=== PATIENT | male | born 1990 | race Caucasian/White ===

== ENCOUNTER 2018-05-21 10:25 | Emergency (ER) | payer MEDICAID, OTHER ==
[~2018-05-21] VITALS: Ht 180.3 cm; Wt 78.0 kg
[~2018-05-21 10:25] MED LIST: IBUP-1984 PO
[2018-05-21 10:26] VITALS: BP 118/79
[2018-05-21] MEDS ORDERED: DOXYCYCLINE 100MG CAPSULE PO STA (10:51)
[2018-05-21] MEDS ORDERED: DOXY100C43 PO (10:53)
[2018-05-21] MEDS ORDERED: gentamicin 0.3% ophthalmic drops 5ML RIGHTEYE ONE (12:00)
== END 2018-05-21 11:10 | disposition home or self-care (01) ==
LOC: ER 10:25
DX: A49.02 Methicillin resistant Staphylococcus aureus infection, unspecified site (principal); H57.11 Ocular pain, right eye; Z88.2 Allergy status to sulfonamides; Z88.8 Allergy status to other drugs, medicaments and biological substances; Z79.899 Other long term (current) drug therapy
CPT/HCPCS: 99283